=== PATIENT | male | born 1960 | race Caucasian/White ===

== ENCOUNTER 2016-08-13 23:15 | Emergency (ER) | payer MEDICAID ==
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
[2016-08-13] MEDS ORDERED: EPINEPHrine 0.3 MG/0.3 ML Pen Autoinjector IM ONE (23:28)
[2016-08-13] MEDS ORDERED: Famotidine 20 MG/2 ML SDV IVPUSH ONE (23:28)
[2016-08-13] MEDS ORDERED: diphenhydrAMINE 50 MG/ML SDV IVPUSH ONE (23:28)
[2016-08-13] MEDS ORDERED: methylPREDNISolone Sodium Succinate 125 MG/2 ML SDV IVPUSH ONE (23:29)
[2016-08-13] MEDS: Sodium Chloride 0.9% 10 ML Syringe FLUSH PRN ×2 (23:34→23:35)
[2016-08-14 00:51] VITALS: BP 131/91
== END 2016-08-14 00:45 | disposition home or self-care (01) ==
LOC: LL.ED 23:15
DX: L23.9 Allergic contact dermatitis, unspecified cause (principal); J06.9 Acute upper respiratory infection, unspecified; B97.89 Other viral agents as the cause of diseases classified elsewhere; M15.0 Primary generalized (osteo)arthritis
CPT/HCPCS: 96372; 96374; 96375; 99285; J1200; J2930; J7050; A9270-GY; S0028

== ENCOUNTER 2019-02-12 19:57 | Emergency (ER) | payer MEDICAID ==
[2019-02-12 20:05] VITALS: PULSE 83
[2019-02-12] MEDS: Ketorolac 60 MG/2 ML SDV IM ONE (20:28)
[2019-02-12 21:10] VITALS: BP 145/68
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
[2019-02-12] MEDS: Acetaminophen 500 MG Tab PO ONE (21:18)
[2019-02-13 06:30] LABS: BARBITURATE SCREEN,URINE NEGATIVE (NEGATIVE); BENZODIAZEPINES SCREEN,URINE NEGATIVE (NEGATIVE); TCA SCREEN,URINE NEGATIVE (NEGATIVE); THC SCREEN,URINE 50 NG/ML NEGATIVE (NEGATIVE)
== END 2019-02-12 21:25 | disposition home or self-care (01) ==
LOC: LL.ED 19:57
DX: S50.812A Abrasion of left forearm, initial encounter (principal); R79.89 Other specified abnormal findings of blood chemistry; I10 Essential (primary) hypertension; H61.23 Impacted cerumen, bilateral; M54.5 Low back pain; M54.2 Cervicalgia; M25.562 Pain in left knee; M19.90 Unspecified osteoarthritis, unspecified site; V43.52XA Car driver injured in collision with other type car in traffic accident, initial encounter; Y92.410 Unspecified street and highway as the place of occurrence of the external cause
CPT/HCPCS: 36415; 71045; 72040; 74018; 80053; 80305-QW; 81001; 85025; 96372; 99284-25; A9270-GY; G0480; J1885